=== PATIENT | female | born 1960 | race Caucasian/White ===

== ENCOUNTER 2019-05-27 16:06 | Emergency (ER) | payer OTHER, SELFPAY ==
[2019-05-27 16:28] VITALS: BP 149/87; PULSE 95; RESP 22; TEMP 36.8; O2SAT 99
--- NOTE | 2019-05-27 16:50 | ED.GENADULT ---
HPI - General Adult General Chief complaint: Headache Stated complaint: headache Time Seen by Provider: 05/27/19 16:50 Source: patient and RN notes reviewed History of Present Illness HPI narrative: Patient is a 58-year-old female that presents the urgent care with complaints of intermittent headache, sinus pressure, nonproductive cough, right ear pain. Patient states that she has had headaches off and on for 1 month and has been seeing her PCP. Patient states that most recently she saw her PCP on Tuesday and was treated for a sinus infection . Patient states that she has been taking the amoxicillin without any improvement. Patient denies of any fevers, nausea, vomiting. States that on the cough and wheezing increased. Patient has been using Sudafed, daily Zyrtec and Flonase nasal spray. No other acute complaints. No acute distress noted. Patient read the plan of care. Related Data Home Medications Medication Instructions Recorded Confirmed Fosamax 05/27/19 amoxicillin 05/27/19 omeprazole 05/27/19 Allergies Allergy/AdvReac Type Severity Reaction Status Date / Time Sulfa (Sulfonamide Allergy Unknown Rash Verified 05/27/19 16:53 Antibiotics) Review of Systems Review of Systems: Narrative: CONSTITUTIONAL: Denies fever, chills, or sweats. EYES: Denies visual changes, redness, or discharge. ENT: Denies rhinorrhea, congestion, sore throat, or otalgia. CARDIOVASCULAR: Denies chest pain, palpitations, or edema. RESPIRATORY: Denies cough or dyspnea. GASTROINTESTINAL: Denies abdominal pain, nausea, vomiting, or diarrhea. GENITOURINARY: Denies dysuria or hematuria. SKIN: Denies rash or itching. MUSCULOSKELETAL: Denies back pain, joint pain, or myalgia. NEUROLOGIC: Reports of intermittent headaches All other systems reviewed are negative, except as documented in HPI. PMFSH Comments At the time of my signature, I reviewed and agree with the nursing past medical, surgical, social, and family history. There is no relevant family history pertinent to the patient complaint. Exam Narrative: Exam Narrative: GENERAL: This is a well-nourished, well-developed patient, in no apparent distress. HEAD: normocephalic, atraumatic. Mild frontal sinus pressure EYES: PERRL. Sclera clear/white. Vision is grossly intact. EARS: External ears normal, auditory canals clear and without drainage, TMs normal without perforation. Hearing grossly intact. NOSE: External nose normal with no obvious nasal discharge, mild bilateral erythemic nares, clear rhinorrhea. THROAT: Mucous membranes moist, posterior pharynx clear. Moderate postnasal drainage NECK: Neck supple, non-tender without lymphadenopathy CARDIOVASCULAR: Regular rate and rhythm without murmurs, gallops, or rubs. RESPIRATORY: Slight expiratory wheeze to right upper lobe, cleared with cough SKIN: warm, intact with no suspicious lesions or rash, good texture and turgor. NEURO: awake, alert, and oriented to person, place and time. There were no obvious focal neurologic abnormalities. EXTREMITIES: No clubbing, cyanosis, or edema. Course Vital Signs Vital signs: Vital Signs Temperature 98.2 F 05/27/19 16:28 Pulse Rate 95 05/27/19 16:28 Respiratory Rate 22 H 05/27/19 16:28 Blood Pressure 149/87 H 05/27/19 16:28 Pulse Oximetry 99 05/27/19 16:28 Temperature 98.2 F 05/27/19 16:28 Pulse Rate 95 05/27/19 16:28 Respiratory Rate 22 H 05/27/19 16:28 Blood Pressure 149/87 H 05/27/19 16:28 Pulse Oximetry 99 05/27/19 16:28 Reviewed?patient is informed that they may have pre-hypertension or hypertension based on a blood pressure reading in the department. I recommend the patient call the primary care provider listed on their discharge instructions or a physician of their choice this week to arrange follow-up for further evaluation of possible pre-hypertension or hypertension. Medical Decision Making MDM Narrative Medical decision making narrative: Riddhi
== END 2019-05-27 17:17 | disposition home or self-care (01) ==
PROVIDERS: Emergency Provider Nurse Practitioner Family; PCP Internal Medicine
DX: J32.9 Chronic sinusitis, unspecified (principal); K21.9 Gastro-esophageal reflux disease without esophagitis
CPT/HCPCS: 99213; G0463

== ENCOUNTER 2022-09-13 11:09 | Emergency (ER) | payer OTHER, MEDICAID, SELFPAY ==
[2022-09-13 11:16] VITALS: BP 138/68; PULSE 85; RESP 20; TEMP 36.8; O2SAT 99
--- NOTE | 2022-09-13 11:23 | ED.EAR ---
HPI - Ear Problem General Chief complaint: Ear Stated complaint: Right Ear Problem History of Present Illness HPI Narrative: patient presents with right ear pain no drainage from ear no hearing loss patient has chronic allergies and takes daily otc medications for allergies. Related Data Home Medications Medication Instructions Recorded Confirmed lovastatin 20 mg tablet mg 09/13/22 metformin 500 mg tablet mg 09/13/22 omeprazole 20 mg capsule,delayed mg 09/13/22 release Allergies Allergy/AdvReac Type Severity Reaction Status Date / Time Sulfa (Sulfonamide Allergy Unknown Rash Verified 05/27/19 16:53 Antibiotics) Review of Systems Review of Systems: CONSTITUTIONAL: Denies fever, chills, or sweats. EYES: Denies visual changes, redness, or discharge. ENT: Denies rhinorrhea, congestion, sore throat, or otalgia. CARDIOVASCULAR: Denies chest pain, palpitations, or edema. RESPIRATORY: Denies cough or dyspnea. GASTROINTESTINAL: Denies abdominal pain, nausea, vomiting, or diarrhea. GENITOURINARY: Denies dysuria or hematuria. SKIN: Denies rash or itching. MUSCULOSKELETAL: Denies back pain, joint pain, or myalgia. NEUROLOGIC: Denies headache, numbness, or weakness. PSYCHIATRIC: Denies anxiety or depression. PMFSH Social History Social History Gender identity (if verbalized by the patient): Female Comments At time of signature, agree with nursing past medical, surgical, social and family history. There is no relevant family history pertinent to the presenting complaint Exam Narrative: GENERAL: Well-appearing, well-nourished, and in no acute distress. HEAD: Normocephalic, atraumatic. EYES: PERRLA and EOMI. ENT: Nares clear, no rhinorrhea or epistaxis. Mucous membranes moist. Right ear moderate erythema to canal with TM dullness NECK: Supple. CHEST: Clear to auscultation. No respiratory distress. HEART: Regular rate and rhythm. No murmur heard. Normal peripheral pulses. ABDOMEN: Soft, nontender, nondistended, normal active bowel sounds. EXTREMITIES: Normal range of motion. No edema. SKIN: Warm, dry, no rash. NEURO: No focal deficits. Alert and oriented x3. Mirna Coma Scale Eye Opening: Spontaneous 4 [place] Coma Scale Motor: Obeys Commands 6 [place] Coma Scale Verbal: Oriented 5 [place] Coma Scale Total 15 Course Course Level of Care: Express Care Visit Vital Signs Vital signs: Vital Signs Temperature 36.8 C 09/13/22 11:16 Pulse Rate 85 09/13/22 11:16 Respiratory Rate 20 09/13/22 11:16 Blood Pressure 138/68 09/13/22 11:16 Pulse Oximetry 99 09/13/22 11:16 Oxygen Delivery Room Air 09/13/22 11:16 Temperature 36.8 C 09/13/22 11:16 Pulse Rate 85 09/13/22 11:16 Respiratory Rate 20 09/13/22 11:16 Blood Pressure 138/68 09/13/22 11:16 Pulse Oximetry 99 09/13/22 11:16 Oxygen Delivery Room Air 09/13/22 11:16 Medical Decision Making Vital Signs Vital Signs: Vital Signs Temperature 36.8 C 09/13/22 11:16 Pulse Rate 85 09/13/22 11:16 Respiratory Rate 20 09/13/22 11:16 Blood Pressure 138/68 09/13/22 11:16 Pulse Oximetry 99 09/13/22 11:16 Oxygen Delivery Room Air 09/13/22 11:16 Temperature 36.8 C 09/13/22 11:16 Pulse Rate 85 09/13/22 11:16 Respiratory Rate 20 09/13/22 11:16 Blood Pressure 138/68 09/13/22 11:16 Pulse Oximetry 99 09/13/22 11:16 Oxygen Delivery Room Air 09/13/22 11:16 Please JOE schedule a followup visit with your personal physician for further evaluation and treatment. Including recheck and discussion of your blood pressure. If your symptoms persist, change or worsen significantly before you can contact your personal physician then please, without delay, go to the emergency department for further evaluation Discharge Plan Discharge Clinical Impression: Otitis externa Patient Disposition: Home, Self-Care Condition: Stable Instructions: Antibiotic Form, Earache
== END 2022-09-13 11:30 | disposition home or self-care (01) ==
PROVIDERS: Emergency Provider Nurse Practitioner Family; PCP Internal Medicine
DX: H60.91 Unspecified otitis externa, right ear (principal); E78.00 Pure hypercholesterolemia, unspecified; K21.9 Gastro-esophageal reflux disease without esophagitis; E11.9 Type 2 diabetes mellitus without complications
CPT/HCPCS: 99203; G0463

== ENCOUNTER 2023-11-17 08:56 | Emergency (ER) | payer OTHER, SELFPAY ==
[2023-11-17 09:10] VITALS: BP 117/83; PULSE 85; RESP 20; TEMP 36.5; O2SAT 100
--- NOTE | 2023-11-17 10:09 | ED.URI ---
HPI - URI/Sore Throat General Chief Complaint: Upper Respiratory Infection Stated Complaint: throat/headache Time Seen by Provider: 11/17/23 10:09 Source: patient, RN notes reviewed and old records reviewed Mode of arrival: ambulatory Limitations: no limitations History of Present Illness HPI Narrative: 63-year-old female presents to the [facility] with complaints of a sore throat, headache, nasal congestion, body aches, felt feverish yesterday. Symptoms started 2 days ago. Took some ibuprofen yesterday. Reports taking Zyrtec a daily basis. No other treatment prior to arrival Able to tolerate fluids by mouth: Yes Treatments prior to arrival: ibuprofen Related Data Home Medications Medication Instructions Recorded Confirmed metformin 500 mg tablet 500 mg PO BID 09/13/22 11/17/23 hydroxyzine pamoate 25 mg capsule 25 mg PO DAILY 11/17/23 11/17/23 lovastatin 40 mg tablet 40 mg PO DAILY 11/17/23 11/17/23 omeprazole 40 mg capsule,delayed 40 mg PO DAILY 11/17/23 11/17/23 release Allergies Allergy/AdvReac Type Severity Reaction Status Date / Time Sulfa (Sulfonamide Allergy Unknown Rash Verified 11/17/23 09:28 Antibiotics) Review of Systems Review of Systems: All systems reviewed & are unremarkable except as noted in HPI and below Constitutional: Constitutional: Reports as per HPI, Reports body ache(s), Reports chills and Reports headache(s) Eyes: Eyes: Reports no additional eye complaints ENT: Reports as per HPI, Reports nasal congestion and Reports sore throat Cardiovascular: Cardiovascular: Reports no additional cardiovascular complaints, Denies chest pain and Denies dyspnea Respiratory: Respiratory: Reports no additional respiratory complaints, Denies chest congestion, Denies cough and Denies dyspnea Gastrointestinal: Gastrointestinal: Reports no additional gastrointestinal complaints, Denies abdominal pain, Denies nausea and Denies vomiting Musculoskeletal: Musculoskeletal: Reports no additional musculoskeletal complaints Integumentary/Breasts: Skin/Breast: Reports system reviewed and no additional complaints, except as docu Neurologic: Reports system reviewed and no additional complaints, except as documented Psychiatric: Psychiatric: Reports no additional psychiatric complaints Allergic/Immunologic: Allergic/Immunologic: Reports no additional allergic/immunologic complaints PMFSH Past Medical History Medical History Acid reflux History of high blood pressure Social History Social History Gender identity (if verbalized by the patient): Female Comments At the time of my signature, I reviewed and agree with the nursing past medical, surgical, social, and family history. There is no relevant family history pertinent to the patient complaint. Exam Const: General: cooperative, healthy appearing, comfortable, no acute distress, well developed, alert and well nourished Nutritional Appearance: well nourished and obese Orientation/consciousness: patient oriented x3 Limitations: no limitations HENMT: Head: normal to inspection Ears: hearing grossly normal bilaterally, external ears normal, TM's normal bilaterally, EAC's normal, mastoids normal and no periauricular adenopathy Face/Nose/Sinus: Normal external nose present, Normal nares present, Normal nasal mucous membranes and turbinates present, Nasal discharge present clear bilateral, normal facial exam and face symmetric Face and sinus: normal facial exam and face symmetric Mouth: Yes Normal oral and palatal mucosa present, Yes lip normal and Yes tongue normal Throat: posterior oropharynx normal, uvula midline, postnasal drainage and no uvular edema Eyes: General: appearance normal, both eyes and all related structures Alignment and Position: alignment normal Periorbital: periorbital findings normal Pupils: Equal, round and reactive pupils
[2023-11-17 10:12] LABS: EDINFLUASCREEN Negative; EDINFLUBSCREEN Negative; EDSTREPNEGPOS1 Negative
== END 2023-11-17 10:30 | disposition home or self-care (01) ==
PROVIDERS: Emergency Provider Nurse Practitioner
DX: R09.82 Postnasal drip (principal); J06.9 Acute upper respiratory infection, unspecified; Z20.822 Contact with and (suspected) exposure to COVID-19; K21.9 Gastro-esophageal reflux disease without esophagitis
CPT/HCPCS: 87081; 87426; 87804; 87880; 99213; G0463

== ENCOUNTER 2024-01-16 12:36 | Emergency (ER) | payer OTHER, SELFPAY ==
[2024-01-16 13:04] VITALS: BP 123/63; PULSE 76; RESP 20; TEMP 36.5; O2SAT 99
--- NOTE | 2024-01-16 15:09 | ED_ITS ---
HPI - General Adult General Chief complaint: Nausea/Vomiting/Diarrhea Stated complaint: Diarrhea/Vomiting Time Seen by Provider: 01/16/24 14:40 Source: patient, RN notes reviewed and old records reviewed Mode of arrival: ambulatory Limitations: no limitations History of Present Illness HPI narrative: 89 year old female who presents to [facility] care with complaints of nausea since Tuesday with some vomiting and also diarrhea this morning. Patient reports that she has had some body aches, no known fevers but has had some chills and has sweats and has felt feverish at times. Patient reports that her grandson has been ill also. Patient reports that her stomach does burn some but denies any abdominal pain does state that she has history of GERD and takes omeprazole. Patient reports that she has taken some Immodium. MD complaint: nausea vomiting and diarrhea Onset (ago): day(s) (4) Severity scale (1-10): 3 Treatments prior to arrival: other (immodium) Related Data Home Medications Medication Instructions Recorded Confirmed metformin 500 mg tablet 500 mg PO BID 09/13/22 01/16/24 hydroxyzine pamoate 25 mg capsule 25 mg PO DAILY 11/17/23 01/16/24 lovastatin 40 mg tablet 40 mg PO DAILY 11/17/23 01/16/24 omeprazole 40 mg capsule,delayed 40 mg PO DAILY 11/17/23 01/16/24 release Allergies Allergy/AdvReac Type Severity Reaction Status Date / Time Sulfa (Sulfonamide Allergy Unknown Rash Verified 01/16/24 13:00 Antibiotics) Review of Systems Review of Systems: CONSTITUTIONAL: Denies known fever, chills, or sweats. EYES: Denies visual changes, redness, or discharge. ENT: Denies rhinorrhea, congestion, sore throat, or otalgia. CARDIOVASCULAR: Denies chest pain, palpitations, or edema. RESPIRATORY: Denies cough or dyspnea. GASTROINTESTINAL: Denies abdominal pain states some abdominal burning and takes daily Omeprazole,positive nausea, vomiting, or diarrhea. GENITOURINARY: Denies dysuria or hematuria. SKIN: Denies rash or itching. MUSCULOSKELETAL: Denies back pain, joint pain, or myalgia. NEUROLOGIC: Denies headache, numbness, or weakness. PSYCHIATRIC: Denies anxiety or depression. All systems reviewed & are unremarkable except as noted in HPI and below PMFSH Past Medical History Medical History Acid reflux Elevated cholesterol History of high blood pressure Social History Social History Gender identity (if verbalized by the patient): Female Comments At time of signature, agree with nursing past medical, surgical, social and family history. There is no relevant family history pertinent to the presenting complaint Exam Narrative: GENERAL: Well-appearing, well-nourished, and in no acute distress. HEAD: Normocephalic, atraumatic. EYES: PERRLA and EOMI. ENT: Nares clear, no rhinorrhea or epistaxis. Mucous membranes moist.TM's normal throat pink no swelling NECK: Supple.no lymphadenopathy CHEST: Clear to auscultation. No respiratory distress.SAO2 99%on room air HEART: Regular rate and rhythm. No murmur heard. Normal peripheral pulses. ABDOMEN: Soft, nontender to palpation, soft no McBurney tenderness, nondistended, normal active bowel sounds. reports emesis and also diarrhea EXTREMITIES: Normal range of motion. No edema. SKIN: Warm, dry, no rash. NEURO: No focal deficits. Alert and oriented x3. Course Course Emergency Course: Patient is aware of diagnosis, understands and agrees to treatment plan.? Anticipatory guidance given.? Patient agrees to follow-up as directed and is aware of reasons to seek care at the emergency department. Portions of this record may have been created with voice recognition software Level of Care: Express Care Visit Vital Signs Vital signs: Vital Signs Temperature 36.5 C 01/16/24 13:04 Pulse Rate 76 01/16/24 13:04 Respiratory Rate 20 01/16/24 13:04 Blood Pressure 123/63 01/16/24 13:04 Pulse Oximetry 99 01/16/24 13:04 Oxygen Delivery Room Air 01/16/24 13:04 Temperature 36.5 C 01/16/24 13:04 Pulse Rate 76 01/16/24 13:04 Respiratory Rate 20 01/16/24 13:04 Blood Pressure 123/63 01/16/24 13:04 Pulse Oximetry 99 01/16/24 13:04 Oxygen Delivery Room Air 01/16/24 13:04 reviewed Medical Decision Making MDM Narrative Medical decision making narrative: Exam findings and imaging show no acute concerns or changes; patient is non- toxic appearing and is in no distress.? Patient is appropriate for outpatient treatment and follow-up Differential Diagnosis Differential Diagnosis: nausea and vomiting and diarrhea, GERD, viral syndrome, gastroenteritis Medical Records Medical records reviewed: Yes I reviewed the external patient's medical records. Vital Signs Vital Signs: Vital Signs Temperature 36.5 C 01/16/24 13:04 Pulse Rate 76 01/16/24 13:04 Respiratory Rate 20 01/16/24 13:04 Blood Pressure 123/63 01/16/24 13:04 Pulse Oximetry 99 01/16/24 13:04 Oxygen Delivery Room Air 01/16/24 13:04 Temperature 36.5 C 01/16/24 13:04 Pulse Rate 76 01/16/24 13:04 Respiratory Rate 20 01/16/24 13:04 Blood Pressure 123/63 01/16/24 13:04 Pulse Oximetry 99 01/16/24 13:04 Oxygen Delivery Room Air 01/16/24 13:04 reviewed Lab Data Lab results reviewed: Yes I reviewed the patient's lab results. Lab results narrative: Influenza A negative, Influenza B negative, COVID antigen negative Labs: Lab Results 01/16/24 Range/Units 15:02 POC Influenza A Ag Negative (Negative) POC Influenza B Ag Negative (Negative) POC SARS CoV-2 Ag Negative (Negative) Critical Care Time Critical Care Time Critical Care Time: No Discharge Plan Discharge Clinical Impression: Gastroenteritis Patient Disposition: Home, Self-Care Condition: Stable Instructions: Antibiotic Form, Gastroenteritis (ED) Additional Instructions: Clear liquids for the next 8-10 hours, then advance to a bland diet as tolerated A bland diet can consist of--BRAT diet which is bananas, rice, applesauce, and toast Avoid fried, greasy, fatty, fried foods Avoid caffeine, nicotine, and alcohol Return to your regular diet in the next 3-4 days Medication as directed for nausea and vomiting Sometimes ibuprofen/Aleve can cause increased stomach upset [id number] Imodium if develop diarrhea Follow-up with her PCP if continued problems or uncontrolled pain Prescriptions: New ondansetron 4 mg tablet,disintegrating 4 mg PO Q6H PRN (Reason: nausea and vomiting) Qty: 14 0RF dicyclomine 20 mg tablet 20 mg PO TID Qty: 20 0RF No Action metformin 500 mg tablet 500 mg PO BID hydroxyzine pamoate 25 mg capsule 25 mg PO DAILY omeprazole 40 mg capsule,delayed release(DR/EC) 40 mg PO DAILY lovastatin 40 mg tablet 40 mg PO DAILY Follow-up/Referrals: UNKNOWN,DOCTOR [Primary Care Provider] - Stand Alone Forms: Work/School Release IP Time of Disposition: 15:24 [place] Coma Scale Eyes: Open Verbal: Oriented and Alert Motor: Follows Commands [place] Coma Total Score: 15
[2024-01-16 15:22] LABS: EDCOVIDSCREEN Negative (Negative); EDINFLUASCREEN Negative (Negative); EDINFLUBSCREEN Negative (Negative)
== END 2024-01-16 15:25 | disposition home or self-care (01) ==
PROVIDERS: Emergency Provider Registered Nurse
DX: K52.9 Noninfective gastroenteritis and colitis, unspecified (principal); Z20.822 Contact with and (suspected) exposure to COVID-19; I10 Essential (primary) hypertension; K21.9 Gastro-esophageal reflux disease without esophagitis
CPT/HCPCS: 87426; 87804; 99213; G0463